=== PATIENT | female | born 1960 | race Caucasian/White ===

== ENCOUNTER 2018-08-24 09:13 | Inpatient (IN) | payer OTHER, SELFPAY ==
[2018-08-24 10:04] LABS: AST (SGOT) 3036 U/L (5-34); Albumin 3.8 g/dL (3.5-5.0); Alkaline Phosphatase 306 U/L (40-150); Anion Gap 16 mmol/L (10-20); BUN (Urea Nitrogen) 19 mg/dL (9.8-20.1); Bilirubin, Total 19.5 mg/dL (0.2-1.2); Calc. Creatinine Clearance 0 mL/min (70-130); Calcium 9.4 mg/dL (7.8-10.44); Carbon Dioxide 19 mmol/L (22-29); Chloride 101 mmol/L (98-107); Estimated GFR-MDRD 60; Globulin 3.6 g/dL (2.4-3.5); Glucose 116 mg/dL (70-105); Lipase 18 U/L (8-78); Potassium 3.6 mmol/L (3.5-5.1); Protein, Total 7.4 g/dL (6.0-8.3); Sodium 132 mmol/L (136-145)
[2018-08-24 10:16] LABS: ALT (SGPT) 4469 U/L (8-55)
[2018-08-24 10:18] LABS: Band 8 % (5-11); Eosinophils 1 % (0-10); Lymphocytes 19 % (21-51); MDiff Complete? YES; Macrocytosis SLIGHT = 6-15 cells (100X) (0-5/hpf); Mean Corpuscular HGB CONC 32.4 g/dL (32.0-36.0); Mean Corpuscular Hemoglobin 32.9 pg (27.0-31.0); Mean Platelet Volume 9.3 fL (7.4-10.4); Monocytes 9 % (0-10); Neutrophil 61 % (42-75); PLT Morphology Comment Appears Adequate; Platelet Count 267 thou/uL (130-400); Reactive Lymphocytes 2 % (0-10); Red Blood Cell (RBC) Count 5.17 mill/uL (4.20-5.40); White Blood Cell (WBC) Count 13.2 thou/uL (4.8-10.8)
[2018-08-24 10:42] LABS: CKMB 0.8 ng/mL (0-6.6); Troponin I Less than 0.010 ng/mL (< 0.028)
[2018-08-24 11:32] LABS: Bilirubin Large (Negative); Blood, Urine Trace (Negative); Leukocyte Trace (Negative); Protein, Urine (Dipstick) 100 mg/dL (Neg-Trace); pH, Urine 6.5 (5.0-9.0)
[2018-08-24 11:33] LABS: Clarity Hazy (Clear)
[2018-08-24 11:36] LABS: Nitrite Negative (Negative); Specific Gravity, Urine 1.028 (1.002-1.036)
[2018-08-24 11:37] LABS: Glucose, Urine (Dipstick) Negative (Negative)
[2018-08-24 11:55] LABS: RBC/HPF 0-3 HPF (0-3)
[2018-08-24 11:56] LABS: Bacteria/HPF None Seen HPF (None Seen); Hyaline Casts/LPF NONE SEEN LPF (0-3 Hyaline); Squamous Epithelial 0-3 HPF (0-3); Transitional Epithelial 0-3 HPF (0-3); WBC/HPF 0-3 HPF (0-3)
[2018-08-24 11:57] LABS: Crystals/HPF None Seen HPF (Negative); Yeast-All Forms 2+ HPF (None Seen)
--- NOTE | 2018-08-24 11:58 | ULT ---
RIGHT UPPER QUADRANT ULTRASOUND: HISTORY: Jaundice, alcohol abuse. FINDINGS: The liver demonstrates coarse echogenicity without focal mass or intrahepatic ductal dilatation. The common duct measures 6 mm in diameter. The gallbladder is not visualized. The patient states that has not been physically removed. No right-sided hydronephrosis is noted. No free fluid is seen in t he Morison's pouch. The visualized portions of the pancreas are unremarkable. IMPRESSION: 1. Nonvisualization of the gallbladder. 2. Findings suggestive of hepatocellular disease. POS: [facility]
--- NOTE | 2018-08-24 12:28 | CT ---
CT ABDOMEN AND PELVIS WITH CONTRAST: Date: 08/24/18 COMPARISON: None. HISTORY: Tiredness and jaundice. History of liver problems. Patient drinks 6-10 days beers every day. TECHNIQUE: Multiple contiguous axial images were obtained in a CT of the abdomen and pelvis with contrast. Coron al reformats were performed. FINDINGS: The gallbladder is contracted. The liver, kidneys, adrenal glands, spleen, and pancreas are unremarka ble. No free air, free fluid, or stranding changes are seen in the abdomen or pelvis. The large and small bowel are unremarkable. The appendix is unremarkable. No abdominal or pelvic lymp hadenopathy seen. Atherosclerotic calcifications are seen in the aorta. Degenerative changes are seen in the spine. The visualized inferior thorax and abdominal wall soft ti ssues are unremarkable. IMPRESSION: No evidence of acute intra-abdominal/pelvic abnormality. POS: [facility]
[2018-08-24 13:05] LABS: INR-International Normal Ratio 1.3; PTT 34.7 SEC (22.9-36.1); Prothrombin Time 16.5 SEC (12.0-14.7)
[2018-08-24] MEDS ORDERED: prednisoLONE Sod Phosphate 10 MG ODT TAB PO SCH (13:15)
[2018-08-24] MEDS ORDERED: ISOVUE-370 76%-LOCM 1 ML ONE (13:17)
[2018-08-24] MEDS ORDERED: prednisoLONE 15 MG/5 ML UDCUP ONE (14:03)
[2018-08-24] MEDS ORDERED: Sodium Chloride 0.65% Nasal 44 ML BOT EA NARE PRN (14:28)
[2018-08-24] MEDS ORDERED: Ondansetron PF 4 MG/2 ML Vial IVP PRN (14:28)
[2018-08-24] MEDS ORDERED: Calcium Carbonate 500 MG ChewTAB PO PRN (14:28)
[2018-08-24] MEDS ORDERED: cloNIDine 0.1 MG TAB PO PRN (14:28)
[2018-08-24] MEDS ORDERED: Ondansetron ODT 4 MG TAB PO PRN (14:28)
[2018-08-24] MEDS ORDERED: Multivit, Adult Inj 10 ML VIAL IV SCH (14:28)
[2018-08-24] MEDS ORDERED: Eucerin (Mineral Oil/Petrolatum,White) 30 gm Jar TOP PRN (14:28)
[2018-08-24] MEDS ORDERED: hydrALAZINE 20 MG/ML VIAL SLOW IVP PRN (14:28)
[2018-08-24] MEDS ORDERED: Artificial Tears 18 DROP/0.9 ML EA EYE PRN (14:28)
[2018-08-24] MEDS ORDERED: Multivitamins, Adult 10 ML in Sodium Chloride 0.9% 500 ML IV SCH (14:45)
--- NOTE | 2018-08-24 14:57 | HP ---
PRIMARY CARE PHYSICIAN: City call admission. REASON FOR ADMISSION: Acute hepatitis. HISTORY OF PRESENT ILLNESS: This is a 58-year-old female, who has no medical history, who presented to emergency room for evaluation of generalized weakness. 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 She went to work today, and her colleague worker noted that she is more yellowish and that is why she was instructed to go to emergency room for evaluation. The patient is not feeling good for about 1 week. She is having generalized weakness. She also noticed that her skin was becoming yellow and her urine was also becoming dark and yellow. She denies any upper abdominal pain. She denies any nausea, vomiting, diarrhea, melena, or hematochezia. She denies any chest pain. She denies any UTI symptoms. She denies any unusual food indigestion. She denies any excessive Tylenol or any herbal medication. The patient reports that when she was in 30s, at that time, she used to do IV drugs, but currently she is only drinking alcohol. She drinks almost 6 to 10 beers, 12 ounces everyday basis for last 20 to 30 years, and she is also smoking. She drank a little bit more during gi. She denies any abdominal distention. She denies any confusion. She denies any fever or chills, but she is noticing that she gets bruise very easily. She did not have any major bleeding from any site in her body. The patient denies any lower extremity edema, orthopnea, or PND. She denies any weight loss. She denies any upper abdominal pain. Today, in the emergency room, the patient had a routine blood test, and she was found with severely abnormal AST and ALT as well as she has leukocytosis and jaundice. CT of abdomen and pelvis did not show any acute process. Ultrasound showed hepatocellular pattern. The patient is being admitted to medical floor for acute hepatitis. REVIEW OF SYSTEMS: Please see my HPI for pertinent positive and negative. All other review of systems reviewed and negative expect as mentioned in the HPI. REVIEW OF SYSTEMS: The following complete review of systems was negative, unless otherwise mentioned in the HPI or below: Constitutional: Weight loss or gain, ability to conduct usual activities. Skin: Rash, itching. Eyes: Double vision, pain. ENT/Mouth: Nose bleeding, neck stiffness, pain, tenderness. Cardiovascular: Palpitations, dyspnea on exertion, orthopnea. Respiratory: Shortness of breath, wheezing, cough, hemoptysis,fever or night sweats. Gastrointestinal: Poor appetite, abdominal pain, heartburn, nausea, vomiting, constipation, or diarrhea. Genitourinary: Urgency, frequency, dysuria, nocturia. Musculoskeletal: Pain, swelling. Neurologic/Psychiatric: Anxiety, depression. Allergy/Immunologic: Skin rash, bleeding tendency. PAST MEDICAL HISTORY The patient reports that she had one time herpes zoster infection. She was having polysubstance abuse in her young age. PAST SURGICAL HISTORY: The patient denies any previous surgical history. PAST PSYCHIATRIC HISTORY: Reviewed and negative. SOCIAL HISTORY: Currently, the patient drinks 5 to 10 beers on daily basis for last 30 years. She also smokes about 1 or 2 packs everyday basis. She used to do IV drugs when she was young, but currently, the patient denies any drug abuse. FAMILY HISTORY: No family history of coronary artery disease, stroke, or cancer. ALLERGIES: NO KNOWN DRUG ALLERGIES. CURRENT HOME MEDICATIONS: The patient is not taking any prescribed or non-prescribed medication. EMERGENCY ROOM COURSE: The patient was given prednisolone 40 mg p.o. and IV fluid 1 L given. PHYSICAL EXAMINATION: VITAL SIGNS: On arrival, blood pressure 145/73, pulse 138, respiratory rate 18, temperature 97.3, and saturation 96% on room air. Weight 70.3 kg. GENERAL: The patient is currently alert, awake. No obvious acute distress. Tachycardic. HEENT: Head, normocephalic and atraumatic. Eyes; deep icterus noted. Extraocular muscle intact. No nystagmus. ENT, oropharynx within normal limits. Moist mucous membrane. No oral lesion. No pharyngeal erythema. No exudate. NECK: Supple. No JVD. No thyromegaly. No carotid bruits. LUNGS: Clear to auscultation without any rhonchi or rales. CARDIAC: S1 and S2, regular. Tachycardia. No murmur. No gallop. No rub. ABDOMEN: Soft. The patient does not have any right upper quadrant tenderness. No Al sign. No peritoneal sign. No ascites. No suprapubic tenderness. No organomegaly. No mass. BACK: Unremarkable. No CVA tenderness. EXTREMITIES: Upper extremities; passive movement of all joints is normal. Lower extremities; no edema. Good distal pulsation. SKIN: Jaundiced skin and bruise noted. PSYCHIATRIC: Normal affect. NEUROLOGIC: Nonfocal examination. No asterixis. Alert and oriented x3. Cranial nerves 2 through 12 intact. Motor and sensation within normal limits. No focal neurological deficit noted. SIGNIFICANT LABORATORY DATA: EKG showing sinus tachycardia. CT of abdomen and pelvis with contrast showing no evidence of acute intraabdominal process. Ultrasound of gallbladder showing finding suggestive of hepatocellular pattern. No CBD stone. CBC: WBC 13.2, hemoglobin 17.0, MCV 101.0, and platelets 267 with bandemia. BMP: Sodium 132, potassium 3.6, chloride 101, carbon dioxide 19, BUN 19, creatinine 0.95, glucose 116, and calcium 9.4. LFT: Total bilirubin 19.5, AST 3036, ALT 4469, alkaline phosphatase 306, albumin 3.8. Lipase 18. CK-MB 0.8. Troponin-I less than 0.010. Magnesium 1.7. Urinalysis: Bilirubin, large; leukocyte esterase, trace; yeast, 2+. ASSESSMENT AND PLAN: Impression: 1. Acute alcoholic hepatitis. At this point, we will check PT, INR, and ammonia level. Campaign Consultant team will be consulted. We will start prednisolone 40 mg p.o. daily. Counseling is given to avoid alcohol or tobacco products. We will check Tylenol level, and we will also check viral hepatitis profile and human immunodeficiency virus status. The patient does not have any arthralgia or any other upper or lower respiratory symptoms to support any other viral infection or autoimmune process at this point. Further investigation will defer to correspondence representative. We will closely monitor while in hospital and monitor LFT. The patient will be given gentle IV fluid with dextrose NS at 125 mL per hour. The patient will be given multivitamin as well. We will also consider folic acid, vitamin B12, and thiamine therapy as well. We will watch for any alcohol withdrawal syndrome. 2. Systemic inflammatory response syndrome criteria, secondary to acute alcoholic hepatitis. The patient has leukocytosis, bandemia, and tachycardia, all related with hepatitis process. The patient does not have any infectious etiology at this point. This systemic inflammatory response syndrome criteria is related with non- infectious etiology from hepatic inflammation. 3. Macrocytic anemia. As mentioned above, the patient has alcohol abuse that contributes macrocytic anemia. We will continue with multivitamin IV as well as folic acid and vitamin B12 and thiamine therapy. 4. Mild metabolic acidosis and mild hyponatremia. We will repeat BMP tomorrow. 5. Tobacco abuse disorder. We will provide nicotine patch while in hospital if needed. Smoking cessation counseling given. 6. Alcohol abuse counseling given to avoid alcohol product. We will continue with folic acid, vitamin B12, and thiamine therapy. 7. History of polysubstance abuse. We will check hepatitis profile as well as human immunodeficiency virus status. 8. Deep venous thrombosis prophylaxis. SCD boots only. We will avoid heparin products because of suspecting coagulopathy from liver disease. 9. Gastrointestinal prophylaxis, Pepcid 20 mg p.o. b.i.d. 10. Code status, the patient is full code. The patient does not have any surrogate decision maker. 11. Disposition plan: Based on clinical course. Job ID: [id number] [facility]
[2018-08-24] MEDS: Dextrose 5 % And 0.9 % NaCl 1,000 ML IV SCH ×2 (15:19→22:16)
[2018-08-24 15:22] VITALS: BMI 24.3
[2018-08-24 15:40] LABS: Acetaminophen Less than 6.0 mcg/mL (10.0-30.0); Alcohol Less than 10 mg/dL (Less than 10); Salicylate Less than 8.0 mg/dL (15.0-30.0)
[2018-08-24 16:01] LABS: HBCM Index 0.07 S/CO (0-0.79); HBSAg Index 0.26 S/CO (0-0.99); HIV (1/2) Antibody/Antigen Non-Reactive (NonReactive); HIV 1/2 INDEX 0.13 S/CO (<1.00); Hep A IgM AB Non-Reactive (NonReactive); Hep A IgM S/CO 0.13 S/CO (0-0.79); Hep B Surf Ag Non-Reactive S/CO (NonReactive); Hep C IgG Ab Non-Reactive (NonReactive); Hep C Index 0.12 S/CO (0-0.79); Hepatitis B Core IgM Abs Non-Reactive (NonReactive)
[2018-08-24 16:03] LABS: Amphetamine Not Detected (NotDetected); Barbiturates Screen Not Detected (NotDetected); Benzodiazepine Screen Not Detected (NotDetected); Cocaine Metabolite Screen Not Detected (NotDetected); Medtox Control Line Valid? VALID (VALID); Medtox Reader # READER 1; Methadone Not Detected (NotDetected); Methamphetamine Not Detected (NotDetected); Opiate Screen Not Detected (NotDetected); Oxycodone Screen Not Detected (NotDetected); Phencyclidine (PCP) Not Detected (NotDetected); THC/Cannabinoid Screen Not Detected (NotDetected); Tricyclic Screen Not Detected (NotDetected)
[2018-08-24] MEDS: Famotidine 20 MG TAB PO SCH (20:11)
--- NOTE | 2018-08-25 00:03 | CON ---
DATE OF CONSULTATION: HISTORY OF PRESENT ILLNESS: The patient is a 58-year-old female, who is in a normal state of health until 1 week prior to admission when she began to notice yellowing eyes and darkening urine. She had no abdominal pain. She has had no nausea or vomiting. She has had no change in her bowel movements other than lightening of her stools. She has not had any prior liver disease. PAST MEDICAL HISTORY: Essentially negative. MEDICATIONS: No prescription medicines or [id number] medicines. On further discussion on [id number], she reports that she takes vitamin E, vitamin D, multivitamin, and milk thistle. ALLERGIES: INCLUDE SULFA. PAST SURGICAL HISTORY: Negative. SOCIAL HISTORY: She drinks 6 to 12 beers per day for the last 30 years. She smokes 2 packs per day for the last 30 years. FAMILY HISTORY: Negative for GI or liver disease. REVIEW OF SYSTEMS: CONSTITUTIONAL: No fever or chills. No weight loss. EYES: No blurred vision or double vision. ENT: No sore throat or earache. CARDIOVASCULAR: No chest pain or palpitations. PULMONARY: No shortness of breath, cough, or wheezing. GI: See above. : No hematuria or dysuria. MUSCULOSKELETAL: No joint pain or muscle weakness. SKIN: No rashes. NEUROLOGIC: No numbness or seizure activity. PHYSICAL EXAMINATION: GENERAL: Shows a deeply icteric white female, in no acute distress. VITAL SIGNS: Temperature 97, pulse 79, respiratory rate 16, and blood pressure 123/81. HEENT: Unremarkable. NECK: Supple. CHEST: Clear. CARDIOVASCULAR: Regular rate and rhythm. ABDOMEN: Soft, nontender, without organomegaly or masses. Bowel sounds are present, normoactive. No hepatosplenomegaly is appreciable. EXTREMITIES: Normal. No edema or other abnormalities are noted. SKIN: She does have spider angiomata of the chest and face. NEUROLOGIC: Nonfocal. LABORATORY DATA: Shows a white blood cell count of 15.2, hemoglobin is 17.0, hematocrit of 52.4, MCV of 101. PT is 16.5 and an INR of 1.3. Chemistries show sodium of 132, CO2 of 19, glucose 116, total bilirubin 19.5, AST of 3036, ALT of 4469, alkaline phosphatase of 306. Urinalysis shows 40 ketones, 100 protein, trace blood, large bilirubin, trace leukocyte esterase. Toxicology shows salicylates less than 8, acetaminophen less than 6, and plasma alcohol less than 10. ASSESSMENT: 1. A 58-year-old alcoholic female with jaundice and overall malaise. Her transaminases are atypical for alcoholic hepatitis and more typical of viral hepatitis or possibly some other etiologic insult to the liver such as acetaminophen overdose or ischemia; both of which are very unlikely. 2. Alcoholism. 3. Elevated hemoglobin-smoking plus or minus dehydration. RECOMMENDATIONS: 1. Hydration. 2. Did not place on IV steroids quite yet. 3. Hepatitis panel. 4. Serial LFTs. Job ID: [id number]
[2018-08-25] MEDS: Dextrose 5 % And 0.9 % NaCl 1,000 ML IV SCH ×4 (03:00→20:19)
[2018-08-25 05:07] LABS: #Basophils 0.1 thou/uL (0.0-0.2); #Lymphocytes 1.9 thou/uL (1.20-3.40); #Monocytes 1.4 thou/uL (0.11-0.59); #Neutrophils 6.2 thou/uL (1.40-6.50); %Basophils 0.9 % (0.0-1.0); %Eosinophils 0.3 % (0.0-10.0); %Lymphocytes 19.7 % (21.0-51.0); %Monocytes 14.7 % (0.0-10.0); %Neutrophils 64.5 % (42.0-75.0); Hemoglobin 14.1 g/dL (12.0-16.0); Mean Corpuscular HGB CONC 33.1 g/dL (32.0-36.0); Mean Platelet Volume 9.2 fL (7.4-10.4); Platelet Count 237 thou/uL (130-400); RBC Distribution Width 13.1 % (11.5-14.5); Red Blood Cell (RBC) Count 4.14 mill/uL (4.20-5.40); White Blood Cell (WBC) Count 9.7 thou/uL (4.8-10.8)
[2018-08-25 05:17] LABS: ALT (SGPT) 2892 U/L (8-55); AST (SGOT) 1356 U/L (5-34); Albumin 2.9 g/dL (3.5-5.0); Alkaline Phosphatase 205 U/L (40-150); Anion Gap 7 mmol/L (10-20); BUN (Urea Nitrogen) 12 mg/dL (9.8-20.1); Bilirubin, Total 14.5 mg/dL (0.2-1.2); Calc. Creatinine Clearance 92 mL/min (70-130); Calcium 8.6 mg/dL (7.8-10.44); Carbon Dioxide 25 mmol/L (22-29); Chloride 109 mmol/L (98-107); Estimated GFR-MDRD 82; Globulin 2.8 g/dL (2.4-3.5); Glucose 149 mg/dL (70-105); Potassium 3.9 mmol/L (3.5-5.1); Protein, Total 5.7 g/dL (6.0-8.3); Sodium 137 mmol/L (136-145)
[2018-08-25 05:21] LABS: ALT (SGPT) 2965 U/L (8-55); AST (SGOT) 1376 U/L (5-34); Alkaline Phosphatase 223 U/L (40-150); Bilirubin, Total 14.6 mg/dL (0.2-1.2); Gamma GT (GGT) 144 U/L (9-36); Protein, Total 5.7 g/dL (6.0-8.3)
[2018-08-25 05:56] LABS: Bilirubin, Direct Greater than 10.0 mg/dL (0.1-0.3)
[2018-08-25 07:11] LABS: Iron 193 ug/dL (50-170); Iron Binding Capacity, Total 188 mcg/dL (265-497)
[2018-08-25] MEDS: Famotidine 20 MG TAB PO SCH ×2 (07:58→20:06)
--- NOTE | 2018-08-25 08:51 | PDOC.PN ---
- Subjective Encounter Start Date: 08/25/18 Encounter Start Time: 07:00 -: old records requested/rev Patient seen and examined. No new complaints. No overnight events she does not have any abdominal pain, she does report some joint pain - Objective Resuscitation Status - Order Detail: 08/24/18 12:50 Resuscitation Status Routine Resuscitation Status: FULL: Full Resuscitation MAR Reviewed: Yes Vital Signs & Weight: Vital Signs (12 hours) Temp Pulse Resp BP Pulse Ox 08/25/18 07:15 97.6 F 84 16 102/67 94 L 08/25/18 04:00 98.0 F 64 16 99/64 94 L 08/25/18 00:49 98.0 F 81 18 110/69 92 L Weight Weight 154 lb 15.759 oz I&O: 08/24/18 08/25/18 08/26/18 06:59 06:59 06:59 Intake Total 1850 Balance 1850 Result Diagrams: 08/25/18 04:40 08/25/18 04:40 Phys Exam - Physical Examination Constitutional: NAD HEENT: PERRLA, moist MMs icterus+ Neck: no JVD, supple Respiratory: no wheezing, no rales, no rhonchi Cardiovascular: RRR, no significant murmur, no rub Gastrointestinal: soft, non-tender, no distention, positive bowel sounds Musculoskeletal: no edema, pulses present Neurological: non-focal, normal sensation, moves all 4 limbs Lymphatic: no nodes Psychiatric: normal affect, A&O x 3 Skin: no rash, normal turgor Dx/Plan (1) Acute alcoholic hepatitis Code(s): K70.10 - ALCOHOLIC HEPATITIS WITHOUT ASCITES Status: Acute (2) Hypoalbuminemia Code(s): E88.09 - OTH DISORDERS OF PLASMA-PROTEIN METABOLISM, NEC Status: Acute Comment: due to alcoholic liver disease (3) Jaundice, hepatocellular Code(s): K76.89 - OTHER SPECIFIED DISEASES OF LIVER Status: Acute (4) Alcohol abuse Code(s): F10.10 - ALCOHOL ABUSE, UNCOMPLICATED Status: Chronic (5) Macrocytic anemia Code(s): D53.9 - NUTRITIONAL ANEMIA, UNSPECIFIED Status: Chronic (6) Tobacco abuse Code(s): Z72.0 - TOBACCO USE Status: Chronic (7) Hemochromatosis Code(s): E83.119 - HEMOCHROMATOSIS, UNSPECIFIED Status: Suspected - Plan cont current plan of care * pt has high ferritin, but may be related with SIRS from hepatitis, then checked iron and transferrin level, all test are high, that gives suspicious about hemochromatosis * will ask GI team to order any genetic test and any further test to rule out hemochromatosis * medication reviewed as below * symptomatic treatment * continue current treatment * GI recommendation noted. * will repeat labs tomorrow Review of Systems - Review of Systems ENT: negative: Ear Pain, Ear Discharge, Nose Pain, Nose Discharge, Nose Congestion, Mouth Pain, Mouth Swelling, Throat Pain, Throat Swelling, Other Respiratory: negative: Cough, Dry, Shortness of Breath, Hemoptysis, SOB with Excertion, Pleuritic Pain, Sputum, Wheezing Cardiovascular: negative: chest pain, palpitations, orthopnea, paroxysmal nocturnal dyspnea, edema, light headedness, other Gastrointestinal: negative: Nausea, Vomiting, Abdominal Pain, Diarrhea, Constipation, Melena, Hematochezia, Other Genitourinary: negative: Dysuria, Frequency, Incontinence, Hematuria, Retention , Other Musculoskeletal: negative: Neck Pain, Shoulder Pain, Arm Pain, Back Pain, Hand Pain, Leg Pain, Foot Pain, Other Skin: negative: Rash, Lesions, Kumar, Bruising, Other - Medications/Allergies Allergies/Adverse Reactions: Allergies Allergy/AdvReac Type Severity Reaction Status Date / Time Penicillins Allergy Verified 08/24/18 15:29 Sulfa (Sulfonamide Allergy Verified 08/24/18 15:30 Antibiotics) Medications: Current Medications Artificial Tears (Tears Naturale) 2 drop EA EYE PRN PRN PRN Reason: Dry Eyes Calcium Carbonate (Tums) 1,000 mg PO Q4H PRN PRN Reason: Heartburn or Indigestion Clonidine (Catapres) 0.1 mg PO Q4H PRN PRN Reason: SBP Greater Than 170 Famotidine (Pepcid) 20 mg PO BID [facility] Last Admin: 08/25/18 07:58 Dose: 20 mg Hydralazine HCl (Apresoline) 10 mg SLOW IVP Q4H PRN PRN Reason: SBP > 180 and HR < 70 Dextrose/Sodium Chloride (D5 0.9% Ns) 1,000 mls @ 125 mls/hr IV .Q8H [facility] Last Admin: 08/25/18 03:00 Dose: 1,000 mls Lactulose (Lactulose) 20 gm PO DAILY [facility] Last Admin: 08/25/18 07:59 Dose: 20 gm Mineral Oil/White Petrolatum (Eucerin Cream) 0 gm TOP BIDPRN PRN PRN Reason: Dry Skin Ondansetron HCl (Zofran Odt) 4 mg PO Q6H PRN PRN Reason: Nausea/Vomiting Ondansetron HCl (Zofran) 4 mg IVP Q6H PRN PRN Reason: Nausea/Vomiting Sodium Chloride ([place] Nasal [place] 0.65%) 0 ml EA NARE QIDPRN PRN PRN Reason: Nasal Congestion
[2018-08-25] MEDS ORDERED: prednisoLONE 15 MG/5 ML UDCUP PO SCH (09:00)
--- NOTE | 2018-08-25 14:11 | PRG ---
DATE OF SERVICE: 08/25/2018 SUBJECTIVE: The patient is feeling well today. Eating well. Normal bowel sounds. OBJECTIVE: VITAL SIGNS: Temperature 98.1, pulse 72, respiratory rate 18, and blood pressure 95/62. CHEST: Clear. CARDIOVASCULAR: Regular rate and rhythm. ABDOMEN: Benign. EXTREMITIES: Normal. LABORATORY DATA: Laboratory shows a white blood cell count of 9.7, hemoglobin 14.1, and hematocrit of 42.5. Chemistries significant for a ferritin of 4800, iron is 193, TIBC of 188, and a percent saturation of 103. Total bilirubin 14.6, GGT of 144, AST of 1376, ALT of 2965, and alkaline phosphatase 223. Hepatitis and HIV were all negative. ASSESSMENT: Acute hepatitis - this is possibly secondary to the combination of alcohol and iron overload. The patients with alcoholic hepatitis can also have abnormal iron studies and the patients with alcohol abuse are also more susceptible to liver disease from hemochromatosis. RECOMMENDATIONS: 1. Liver biopsy. 2. Hemochromatosis phenotyping. 3. Alpha-fetoprotein. Job ID: [id number]
--- NOTE | 2018-08-25 15:20 | ULT ---
ULTRASOUND GUIDED LIVER BIOPSY: Date: 08/25/18 INDICATION: Significant liver disease with possible hemochromatosis. TECHNIQUE: Informed consent was obtained. Preprocedure ultrasound was performed for guidance purposes. Site over lying the left hepatic lobe was marked. Site was prepped and draped in the usual sterile fashion. Marc eout was performed. The overlying subcutaneous tissues and liver capsule were anesthetized utilizing buffered 1% lidocaine. A small incision was made. A 17 gauge trocar needle was guided down into the l eft hepatic lobe. One core sample utilizing an 18 gauge core biopsy device was obtained. This was a 2 .5 cm sample. The patient tolerated the biopsy without difficulty. Postprocedure images demonstrate n o significant intraparenchymal hematoma. Pressure was held at the biopsy site until hemostasis obtain ed. The patient tolerated the biopsy without difficulty. IMPRESSION: Successful ultrasound guided nonfocal core liver biopsy of left hepatic lobe. POS: [facility]
[2018-08-25] MEDS ORDERED: diphenhydrAMINE 50 MG/ML VIAL IVP SCH (22:15)
[2018-08-26] MEDS: Dextrose 5 % And 0.9 % NaCl 1,000 ML IV SCH (06:34)
[2018-08-26] MEDS: Famotidine 20 MG TAB PO SCH (08:06)
[2018-08-26 08:30] LABS: ALT (SGPT) 2548 U/L (8-55); AST (SGOT) 1449 U/L (5-34); Albumin 2.7 g/dL (3.5-5.0); Alkaline Phosphatase 198 U/L (40-150); Anion Gap 9 mmol/L (10-20); BUN (Urea Nitrogen) 6 mg/dL (9.8-20.1); Bilirubin, Total 14.6 mg/dL (0.2-1.2); Calc. Creatinine Clearance 103 mL/min (70-130); Calcium 7.9 mg/dL (7.8-10.44); Carbon Dioxide 21 mmol/L (22-29); Chloride 113 mmol/L (98-107); Estimated GFR-MDRD Greater than 90; Globulin 2.7 g/dL (2.4-3.5); Glucose 103 mg/dL (70-105); Potassium 3.7 mmol/L (3.5-5.1); Protein, Total 5.4 g/dL (6.0-8.3); Sodium 139 mmol/L (136-145)
--- NOTE | 2018-08-26 09:34 | PDOC.PN ---
- Subjective Encounter Start Date: 08/26/18 Encounter Start Time: 08:50 Patient seen and examined. No new complaints. No overnight events - Objective Resuscitation Status - Order Detail: 08/24/18 12:50 Resuscitation Status Routine Resuscitation Status: FULL: Full Resuscitation MAR Reviewed: Yes Vital Signs & Weight: Vital Signs (12 hours) Temp Pulse Resp BP BP Pulse Ox 08/26/18 08:20 101/63 08/26/18 08:08 92 L 08/26/18 07:41 99.5 F 76 20 101/63 91 L 08/25/18 23:00 20 Weight Weight 154 lb 15.759 oz I&O: 08/25/18 08/26/18 08/27/18 06:59 06:59 06:59 Intake Total 1850 3200 Balance 1850 3200 Result Diagrams: 08/25/18 04:40 08/26/18 07:56 Phys Exam - Physical Examination Constitutional: NAD HEENT: PERRLA, moist MMs icterus+ Neck: no JVD, supple Respiratory: no wheezing, no rales, no rhonchi Cardiovascular: RRR, no significant murmur, no rub Gastrointestinal: soft, non-tender, no distention, positive bowel sounds Musculoskeletal: no edema, pulses present Neurological: non-focal, normal sensation, moves all 4 limbs Lymphatic: no nodes Psychiatric: normal affect, A&O x 3 Skin: no rash, normal turgor Dx/Plan (1) Acute alcoholic hepatitis Code(s): K70.10 - ALCOHOLIC HEPATITIS WITHOUT ASCITES Status: Acute (2) Hypoalbuminemia Code(s): E88.09 - OTH DISORDERS OF PLASMA-PROTEIN METABOLISM, NEC Status: Acute Comment: due to alcoholic liver disease (3) Jaundice, hepatocellular Code(s): K76.89 - OTHER SPECIFIED DISEASES OF LIVER Status: Acute (4) Alcohol abuse Code(s): F10.10 - ALCOHOL ABUSE, UNCOMPLICATED Status: Chronic (5) Macrocytic anemia Code(s): D53.9 - NUTRITIONAL ANEMIA, UNSPECIFIED Status: Chronic (6) Tobacco abuse Code(s): Z72.0 - TOBACCO USE Status: Chronic (7) Hemochromatosis Code(s): E83.119 - HEMOCHROMATOSIS, UNSPECIFIED Status: Suspected - Plan cont current plan of care * medication reviewed as below * symptomatic treatment * reduce IVF * LFT slowly improving * follow up on liver biopsy and hereditary hemochromatosis test result. Review of Systems - Review of Systems ENT: negative: Ear Pain, Ear Discharge, Nose Pain, Nose Discharge, Nose Congestion, Mouth Pain, Mouth Swelling, Throat Pain, Throat Swelling, Other Respiratory: negative: Cough, Dry, Shortness of Breath, Hemoptysis, SOB with Excertion, Pleuritic Pain, Sputum, Wheezing Cardiovascular: negative: chest pain, palpitations, orthopnea, paroxysmal nocturnal dyspnea, edema, light headedness, other Gastrointestinal: negative: Nausea, Vomiting, Abdominal Pain, Diarrhea, Constipation, Melena, Hematochezia, Other Genitourinary: negative: Dysuria, Frequency, Incontinence, Hematuria, Retention , Other Musculoskeletal: negative: Neck Pain, Shoulder Pain, Arm Pain, Back Pain, Hand Pain, Leg Pain, Foot Pain, Other Skin: negative: Rash, Lesions, Kumar, Bruising, Other - Medications/Allergies Allergies/Adverse Reactions: Allergies Allergy/AdvReac Type Severity Reaction Status Date / Time Penicillins Allergy Verified 08/24/18 15:29 Sulfa (Sulfonamide Allergy Verified 08/24/18 15:30 Antibiotics) Medications: Current Medications Artificial Tears (Tears Naturale) 2 drop EA EYE PRN PRN PRN Reason: Dry Eyes Calcium Carbonate (Tums) 1,000 mg PO Q4H PRN PRN Reason: Heartburn or Indigestion Clonidine (Catapres) 0.1 mg PO Q4H PRN PRN Reason: SBP Greater Than 170 Famotidine (Pepcid) 20 mg PO BID [facility] Last Admin: 08/26/18 08:06 Dose: 20 mg Hydralazine HCl (Apresoline) 10 mg SLOW IVP Q4H PRN PRN Reason: SBP > 180 and HR < 70 Dextrose/Sodium Chloride (D5 0.9% Ns) 1,000 mls @ 125 mls/hr IV .Q8H [facility] Last Admin: 08/26/18 06:34 Dose: 1,000 mls Lactulose (Lactulose) 20 gm PO DAILY [facility] Last Admin: 08/26/18 08:06 Dose: 20 gm Mineral Oil/White Petrolatum (Eucerin Cream) 0 gm TOP BIDPRN PRN PRN Reason: Dry Skin Ondansetron HCl (Zofran Odt) 4 mg PO Q6H PRN PRN Reason: Nausea/Vomiting Ondansetron HCl (Zofran) 4 mg IVP Q6H PRN PRN Reason: Nausea/Vomiting Sodium Chloride ([place] Nasal [place] 0.65%) 0 ml EA NARE QIDPRN PRN PRN Reason: Nasal Congestion
--- NOTE | 2018-08-26 11:01 | DIS ---
DATE OF ADMISSION: 08/24/2018 DATE OF DISCHARGE: 08/26/2018 PRIMARY CARE PHYSICIAN: [facility] call admission. DISCHARGE DISPOSITION: Home. PRIMARY DISCHARGE DIAGNOSIS: Acute hepatitis. SECONDARY DISCHARGE DIAGNOSES: 1. Tobacco abuse disorder. 2. Macrocytic anemia. 3. Alcohol abuse. PRIMARY PROCEDURE/OPERATION: Liver biopsy. RADIOLOGICAL INVESTIGATION: Abdomen and pelvis CT scan unremarkable. Abdominal ultrasound, hepatocellular pattern. SIGNIFICANT LABS: WBC 9.7, hemoglobin 14.1, and platelet 237. INR 1.3. Sodium 139, potassium 3.7, BUN 6, creatinine 0.65. Bilirubin 14.6, AST 1449, ALT 2548, alkaline phosphatase 198, albumin 2.7. Alpha-fetoprotein level 6.3. Serum drug screen and urine drug screen negative. Hepatitis and HIV negative. DISCHARGE MEDICATIONS: 1. Prednisolone 40 mg p.o. daily. 2. Lactulose 20 g p.o. daily p.r.n. 3. Folic acid 1 mg p.o. daily. 4. Vitamin B12 1000 mcg p.o. daily. 5. Thiamine 100 mg p.o. daily. 6. Pepcid 20 mg p.o. b.i.d. CONTRAINDICATION: None. CODE STATUS: Full code. INPATIENT BOTTOM FINISHER: Dr. Moane was following while in hospital. TEST RESULTS PENDING ON DISCHARGE: Hemochromatosis DNA test and liver biopsy test result pending. DISCHARGE PLAN: Post hospital, the patient will have appointment with Dr. Monae on coming . At that time, the patient will have repeat LFT done and follow up on test results. HOSPITAL COURSE: A 58-year-old female who was admitted by me. Please see my HPI for further detail. The patient was having significantly abnormal LFT. She had abdominal ultrasound and abdominal pelvis CT scan which did not show any acute process. We suspected alcoholic hepatitis given her alcohol history. We checked a viral hepatitis panel and that was negative, HIV was negative. When we checked ferritin level, it was very high and transferrin level was also very high, so we suspected hereditary hemochromatosis, we did liver biopsy and hereditary hemochromatosis test result was sent. We also prescribed prednisolone upon discharge for 7 days and the patient will follow with GI in their clinic for a repeat followup. Even with these LFTs, the patient is doing excellent. She is ambulatory, tolerating p.o. well, and she does not have any significant clinical problem, but she needs to follow up with GI as an outpatient basis. I spoke with Dr. Monae and he cleared her for discharge as well. Please follow up on send-out test results including HANNAH, ceruloplasmin, CMV, Wen-Zhao virus, mitochondrial antibody, hemochromatosis, biopsy, and DNA test. The patient is seen and examined at bedside today. Please see my progress note from today for further details. Total time spent on discharge, 32 minutes. Job ID: [id number]
--- NOTE | 2018-08-26 11:36 | PRG ---
DATE OF SERVICE: 08/26/2018 SUBJECTIVE: The patient is feeling well. She has had no nausea or vomiting. She is having good bowel movements. Her liver biopsy was performed without incident yesterday. OBJECTIVE: VITAL SIGNS: Temperature is 99.5, pulse 76, and blood pressure 101/63. CHEST: Clear. CARDIOVASCULAR: Regular rate and rhythm. ABDOMEN: Soft and slightly tender in right upper quadrant without rebound or guarding. LABORATORY DATA: Laboratory shows a CO2 of 21, total bilirubin of 14.6, AST of 1449, ALT of 2548, alkaline phosphatase of 198, alpha-fetoprotein is 6.3, albumin of 2.7. ASSESSMENT: Acute hepatitis - I suspect this is a combination of alcoholic hepatitis and possible hemochromatosis. RECOMMENDATIONS: 1. Have the patient follow up in our office later in the week on either or Tuesday. 2. Begin prednisolone 40 mg daily. We will continue that as an outpatient and reassess after 1 week of therapy. 3. Alcohol abstinence. 4. Stable for discharge from GI standpoint. Job ID: [id number]
[2018-08-26 11:57] VITALS: BP 127/82; TEMP 97.9
[2018-08-27] MEDS ORDERED: prednisoLONE 15 MG/5 ML UDCUP PO SCH (08:00)
[2018-08-27 14:09] LABS: CMV IgG AB Greater than 10.00 U/mL (0.00-0.59)
[2018-08-27 16:37] LABS: ANA Symphony (Qualitative) Negative (Negative); EliA Vaculitis New Method **** NEW METHOD ****; Mitochondrial Ab 1.4 U/mL (<4 Negative); dsDNA IgG Antibody 1.2 IU/mL (<10 Negative)
== END 2018-08-26 12:32 | disposition home or self-care (01) | DRG 434 ==
LOC: ERS 09:13 → T4-A 12:33
PROVIDERS: ADMIT Internal Medicine; ATTEND Internal Medicine
PROC: 0FB23ZX Excision of Left Lobe Liver, Percutaneous Approach, Diagnostic (ICD-10-PCS; principal; 2018-08-24)
DX: K70.10 Alcoholic hepatitis without ascites (principal); E88.09 Other disorders of plasma-protein metabolism, not elsewhere classified; F10.20 Alcohol dependence, uncomplicated; D53.9 Nutritional anemia, unspecified; Z72.0 Tobacco use; E83.119 Hemochromatosis, unspecified
CPT/HCPCS: 36415; 47000; 74177; 76705; 76942; 80053; 80074; 80306; 80307; 81003; 81015; 81256; 82105; 82140; 82390; 82553; 82728; 82977; 83516; 83540; 83550; 83690; 83735; 84484; 85025; 85610; 85730; 86038; 86225; 86644; 86645; 87389; 87798; 88307; 88313; 88321; 96360; J1200; J7050

== ENCOUNTER 2020-05-21 11:44 | Inpatient (IN) | payer OTHER ==
[2020-05-21 12:26] LABS: INR-International Normal Ratio 1.2; PTT 35.5 sec (22.9-36.1); Prothrombin Time 15.2 sec (12.0-14.7)
[2020-05-21 12:47] LABS: Hemoglobin 16.1 g/dL (12.0-16.0); Mean Corpuscular Hemoglobin 32.1 pg (27.0-31.0); Mean Platelet Volume 10.2 fL (7.4-10.4); Platelet Count 261 thou/uL (130-400); RBC Distribution Width 13.4 % (11.5-14.5); Red Blood Cell (RBC) Count 5.03 mill/uL (4.20-5.40)
[2020-05-21 12:48] LABS: ALT (SGPT) 1848 U/L (8-55); AST (SGOT) 1344 U/L (5-34); Albumin 3.8 g/dL (3.4-4.8); Alkaline Phosphatase 329 U/L (40-110); Anion Gap 11 mmol/L (10-20); BUN (Urea Nitrogen) 15 mg/dL (9.8-20.1); Bilirubin, Total 10.3 mg/dL (0.2-1.2); Calc. Creatinine Clearance 0 mL/min (70-130); Calcium 9.1 mg/dL (7.8-10.44); Carbon Dioxide 22 mmol/L (23-31); Chloride 105 mmol/L (98-107); Estimated GFR-MDRD 70; Globulin 4.5 g/dL (2.4-3.5); Glucose 129 mg/dL (80-115); Lipase 17 U/L (8-78); Protein, Total 8.3 g/dL (6.0-8.3); Sodium 134 mmol/L (136-145)
[2020-05-21 12:51] LABS: #Basophils 0.2 thou/uL (0.0-0.2); #Eosinphils 0.2 thou/uL (0.0-0.7); #Lymphocytes 4.9 thou/uL (1.20-3.40); #Monocytes 1.6 thou/uL (0.11-0.59); #Neutrophils 8.6 thou/uL (1.40-6.50); %Eosinophils 1.5 % (0.0-10.0); %Lymphocytes 31.7 % (21.0-51.0); %Monocytes 10.2 % (0.0-10.0); %Neutrophils 55.5 % (42.0-75.0); Band 7 % (5-11); Eosinophils 1 % (0-10); Lymphocytes 20 % (21-51); MDiff Complete? YES; Monocytes 7 % (0-10); Neutrophil 65 % (42-75); Platelet Morphology Comment Appears Adequate; Polychromasia SLIGHT = 2-3 cells (100X) (0-2/hpf); Target Cells SLIGHT = 2-5 cells (100X) (0-1/hpf)
[2020-05-21] MEDS ORDERED: Hydrocortisone Sod Succ/PF 100 mg/2 ml Vial ONE (12:56)
[2020-05-21] MEDS ORDERED: Famotidine/PF 20 mg/2ml Vial ONE (12:56)
[2020-05-21] MEDS ORDERED: diphenhydrAMINE 50 MG/ML VIAL ONE (12:56)
[2020-05-21] MEDS ORDERED: methylPREDNISolone Sod Succ/PF 125 MG/2 ML VIAL ONE (12:57)
--- NOTE | 2020-05-21 14:06 | CT ---
CT Abdomen Pelvis W Con History: Abdominal pain. Comparison: CT 2019 Findings: Lung bases are clear. No pericardial effusion. Mild periportal edema. Mild nodular appearance of the liver. There is an exophytic hypodensity, subcapsular, and hepatic segment 2 measuring 1 cm in size. There i s peripheral decreased parenchymal enhancement within hepatic segment 8. No hydronephrosis. Spleen and pancreas are unremarkable. Mild diverticular disease of the sigmoid colon without active current inflammation. The appendix is v isualized and is normal. Degenerative disc space changes lower lumbar spine. Impression: 1. Relative to CT examination nearly 2 years prior, the liver is smaller with peripheral fibrosis and progressive surface nodularity. 2. Peripheral hypodensity hepatic segment 8, subcapsular, measuring 1 cm in size is similar to compar ana CT examination without significant growth and not likely of clinical significance. 3. No acute inflammatory process within the abdomen or pelvis.
--- NOTE | 2020-05-21 14:12 | PDOC.HHP ---
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 The patient reports over the last 2 to 3 days feeling generally fatigued with associated white/monae stools. She remembered the last time she felt this way, it was her liver "acting up". Therefore, she called her housekeeper head office yesterday and explained her symptoms, which included generalized fatigue and white/monae stools. General labs were ordered by the GI office. This morning the patient awoke and noticed that she was "glowing in the dark" referring to her yellow skin. She also received a call from the housekeeper head office, instructing her to go to the ER because her liver enzymes and labs were abnormal. The only change to her medications is that she began taking milk thistle 1 week ago per recommendation by her housekeeper head. She denies any recent vaccinations or other medications. She denies any illicit drug usage in the past several years, no high risk sexual activity (she is ), denies fever, abdominal pain, nausea, vomiting , diarrhea. She does admit to some intermittent dysuria and dark urine. Of note, the patient reported that she was diagnosed with autoimmune hepatitis in 2018. At that time she had a complete work-up including CT scan, liver biopsy and "all the labwork you can think of ". Initially, she reports that the housekeeper head, Dr. Monae, thought it was attributed to her alcohol intake because at that time, she drank 8-9 beers per day. However, she reports that was subsequently ruled out. 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 She reports that she has had several tests for the hepatitis virus, which were all negative. She denies any illicit drug use since her diagnosis in 2018. She is and has no concern for sexual STIs. She reports that once the diagnosis was made in late 2017, she was placed on high dose oral steroids and an unknown immunomodulator. She reports that she had to stop the immunomodulator because it gave her a "severe reaction". She continued the steroid regimen from July 2018 through December 2018. She was receiving labs every 3 months. She reports her last lab work in February 2020 was unremarkable. She was in her usual state of health until 2-3 days ago. ED Course: Patient presented tachycardic, with normal blood pressure, normal respirations, normal O2 sat, afebrile. CT of the abdomen pelvis with contrast showed relative to CT examination nearly 2 years prior, the liver is smaller with peripheral fibrosis and progressive surface nodularity. Peripheral hypodensity hepatic segment 8, subcapsular, measuring 1 cm in size similar to comparison CT examination without significant growth or not likely clinical significance. No acute inflammatory process within the abdomen or the pelvis. Total bilirubin 10.3, direct bilirubin 7.4, AST 1344, ALT 1848, alk phos 329, PT 15.2, INR 1.2, APTT 35.5, WBCs 14.0. VITAL SIGNS TueMay 21, 2020 11:45 LIANET Claros Emily BP: 139/84, Pulse: 125, Resp: 17, Temp: 99.0 (Oral), Pain: 0, O2 sat: 96 on ( Room Air), Time: 05/21/2020 11:45 Medications administered: sodium chloride 0.9 % intravenous 1 L IV Fluid Infusion Given 13:32 05/21/2020 Pepcid (PF) 20 mg IV Push Given 13:15 05/21/2020 SOLU-Medrol injection 125 mg IV Push Given 13:15 05/21/2020 Benadryl injection 50 mg IV Push Given 13:15 05/21/2020 Hospitalist ROS - Review of Systems Constitutional: reports: weakness (Generalized), malaise. denies: fever, chills Cardiovascular: denies: chest pain, palpitations, edema, light headedness Gastrointestinal: reports: other (White/monae stools, last bowel movement this morning). denies: nausea, vomiting, abdominal pain, diarrhea, constipation Genitourinary: reports: dysuria. denies: frequency, incontinence, hematuria Neurological: denies: numbness, change in speech, confusion All other systems reviewed; all pertinent +/- noted in HPI/Subj - Medication Medications: Home Medications: NONE Allergies: iodine, penicillin G sodium, Sulfa (Sulfonamide Antibiotics), Sulfa Dyne Hospitalist History - Past Medical History Source: patient, RN notes reviewed Other Medical History: MEDICAL HISTORY TueMay 21, 2020 12:25 LIANET Maurer, Pearl Auto immune hepatitis, aguilar Lamin syndrome. FEMALE SURGICAL HISTORY TueMay 21, 2020 12:25 LIANET Maurer Melanie Patient has no surgical history. PSYCHIATRIC HISTORY TueMay 21, 2020 12:25 LIANET Maurer Melanie No previous psychiatric history, No previous psychiatric history. SOCIAL HISTORY TueMay 21, 2020 12:25 LIANET Maurer Melanie Patient denies alcohol use, Patient denies drug use, Patient currently uses tobacco, smokes cigarettes, daily, Patient smokes 2 packs per day. Former alcohol abuse (quit 2 years ago, drank 8-9 beers daily), former meth abuse. Lives with spouse at home, ambulates without assistive device. FAMILY HISTORY non contributory for auto immune disorders or liver disease. - Exam General Appearance: NAD, awake alert. negative: ill appearing General - other findings: Jaundiced face and chest Eye: scleral icterus ENT: normocephalic atraumatic, dry oral mucosa Neck: supple, symmetric Heart: no murmur, no gallops, no rubs, normal peripheral pulses Heart - other findings: tachycardia Respiratory: CTAB, no wheezes, no rales, no ronchi, normal chest expansion, no tachypnea Gastrointestinal: soft, non-tender, normal bowel sounds, no bruit, no guarding, no rigidity, distended (mildly) Extremities: no cyanosis, no edema Skin: negative: no rashes Skin - other findings: jaundice face and chest Neurological: cranial nerve grossly intact, normal sensation to touch, no weakness, no focal deficits Musculoskeletal: normal tone, normal strength Psychiatric: normal affect, A&O x 3 Hospitalist Results - Labs Result Diagrams: 05/21/20 12:05 05/21/20 12:05 Lab results: WBC 14.0 thou/uL (4.8-10.8) H 05/21/20 12:05 Hgb 16.1 g/dL (12.0-16.0) H 05/21/20 12:05 Hct 50.4 % (36.0-47.0) H 05/21/20 12:05 MCV 100.0 fL (78.0-98.0) H 05/21/20 12:05 Plt Count 261 thou/uL (130-400) 05/21/20 12:05 Neutrophils % 55.5 % (42.0-75.0) 05/21/20 12:05 Band Neuts % (Manual) 7 % (5-11) 05/21/20 12:05 Sodium 134 mmol/L (136-145) L 05/21/20 12:05 Potassium 4.0 mmol/L (3.5-5.1) 05/21/20 12:05 Chloride 105 mmol/L (98-107) 05/21/20 12:05 Carbon Dioxide 22 mmol/L (23-31) L 05/21/20 12:05 BUN 15 mg/dL (9.8-20.1) 05/21/20 12:05 Creatinine 0.83 mg/dL (0.6-1.1) 05/21/20 12:05 Glucose 129 mg/dL (80-115) H 05/21/20 12:05 Calcium 9.1 mg/dL (7.8-10.44) 05/21/20 12:05 Total Bilirubin 10.3 mg/dL (0.2-1.2) H 05/21/20 12:05 AST 1344 U/L (5-34) H 05/21/20 12:05 ALT 1848 U/L (8-55) H 05/21/20 12:05 Alkaline Phosphatase 329 U/L (40-110) H 05/21/20 12:05 Serum Total Protein 8.3 g/dL (6.0-8.3) 05/21/20 12:05 Albumin 3.8 g/dL (3.4-4.8) 05/21/20 12:05 Lipase 17 U/L (8-78) 05/21/20 12:05 - Radiology Interpretation CT scan - abdomen Status: report reviewed by [place] Hospitalist H&P A/P - Problem (1) Transaminitis Code(s): R74.0 - NONSPEC ELEV OF LEVELS OF TRANSAMNS & LACTIC ACID DEHYDRGNSE Status: Acute Assessment and Plan: Admit the patient to telemetry floor, inpatient status. Expected length of stay at least 2 midnights. Patient presented tachycardic, with normal blood pressure, normal respirations, normal SPO2, afebrile. CT abdomen negative for any acute inflammatory process in the abdomen. Total bilirubin 10.3, direct bilirubin 7.4, AST 1344, ALT 1844, ALP 329, lipase 17, PT 15.2, INR 1.2, WBCs 14. Upon examination, patient reported known history of autoimmune hepatitis with extensive work-up in 2018. She reports hepatitis was well-controlled on steroids from July 2018 through December 2018. Since that she was getting lab work every 3 months and followed up with Dr. Regalado. She reports that she is "still paying the bill for her previous hospital stay". She prefers minimal lab work as possible. Will continue high-dose IV steroids. Continue IV fluids. Consult GI. Will order right upper quadrant ultrasound to rule out obstruction. Repeat labs in a.m. Will allow oral intake today and make n.p.o. after midnight. (2) Tachycardia Code(s): R00.0 - TACHYCARDIA, UNSPECIFIED Status: Acute Assessment and Plan: Asymptomatic, no cardiac risk factors. Will get baseline 12 -lead EKG. (3) Dysuria Code(s): R30.0 - DYSURIA Status: Acute Assessment and Plan: Will check UA. Likely related to Problem #1. (4) Hepatitis, autoimmune Code(s): K75.4 - AUTOIMMUNE HEPATITIS Status: Chronic Assessment and Plan: Reports extensive work-up [place] [address] Monae. Reports successful treatment with high-dose oral steroids from July 2018 through December 2018. Reports failure on neuromodulator with unknown name due to severe allergic reaction. Has been getting lab work every [address] Regalado office. (5) Tobacco abuse Code(s): Z72.0 - TOBACCO USE Status: Chronic Assessment and Plan: Reports smoking just under 2 packs/day. Unwilling to quit. Trying to "cut back ". Will order an NRT therapy. Will application counselor on tobacco cessation. - Plan Plan: Consult PT. Lovenox for DVT prophylaxis. Protonix for GI prophylaxis. Full code. Discussed case with Dr. Zhu.
[2020-05-21] MEDS ORDERED: Iopamidol-370 76% 500 ML 1 ML ONE (14:14)
[2020-05-21] MEDS ORDERED: Calcium Carbonate 500 MG ChewTAB PO PRN (14:52)
[2020-05-21] MEDS ORDERED: Ondansetron PF 4 MG/2 ML Vial IVP PRN (14:52)
[2020-05-21] MEDS ORDERED: Ondansetron ODT 4 MG TAB PO PRN (14:52)
[2020-05-21] MEDS ORDERED: Senokot S 8.6-50 MG TAB PO PRN (14:52)
[2020-05-21] MEDS: Sodium Chloride 0.9% 1,000 ML IV SCH (20:03)
[2020-05-21] MEDS: methylPREDNISolone Sod Succ/PF 125 MG/2 ML VIAL IVP SCH ×2 (20:08→23:49)
[2020-05-21] MEDS ORDERED: Nicotine 14 MG PATCH TD SCH (21:00)
[2020-05-21 23:29] LABS: Bacteria/HPF None Seen HPF (None Seen); Bilirubin 2+ (Negative); Blood, Urine 1+ (Negative); Clarity Clear (Clear); Glucose, Urine (Dipstick) Normal (Negative); Ketone, Urine Negative (Negative); Leukocyte 500 Leu/uL (Negative); Mucous/LPF Rare LPF (<2+); Nitrite Negative (Negative); Protein, Urine (Dipstick) 10 mg/dL (Neg-Trace); Renal Epithelial 0-3 HPF (None Seen); Specific Gravity, Urine 1.033 (1.002-1.036); WBC/HPF 21-50 HPF (0-3)
[2020-05-22 04:23] LABS: Band 14 % (5-11); Hemoglobin 14.1 g/dL (12.0-16.0); Lymphocytes 17 % (21-51); MDiff Complete? YES; Mean Corpuscular Hemoglobin 32.3 pg (27.0-31.0); Mean Platelet Volume 9.9 fL (7.4-10.4); Monocytes 1 % (0-10); Neutrophil 68 % (42-75); Platelet Count 231 thou/uL (130-400); Platelet Morphology Comment Appears Adequate; RBC Distribution Width 13.7 % (11.5-14.5); Red Blood Cell (RBC) Count 4.37 mill/uL (4.20-5.40); White Blood Cell (WBC) Count 11.7 thou/uL (4.8-10.8)
[2020-05-22] MEDS: methylPREDNISolone Sod Succ/PF 125 MG/2 ML VIAL IVP SCH ×2 (04:29→13:03)
[2020-05-22 04:38] LABS: ALT (SGPT) 1337 U/L (8-55); AST (SGOT) 664 U/L (5-34); Albumin 3.1 g/dL (3.4-4.8); Alkaline Phosphatase 260 U/L (40-110); Anion Gap 8 mmol/L (10-20); BUN (Urea Nitrogen) 13 mg/dL (9.8-20.1); Bilirubin, Total 6.8 mg/dL (0.2-1.2); Calc. Creatinine Clearance 101 mL/min (70-130); Calcium 8.7 mg/dL (7.8-10.44); Carbon Dioxide 21 mmol/L (23-31); Chloride 110 mmol/L (98-107); Estimated GFR-MDRD 82; Globulin 3.8 g/dL (2.4-3.5); Glucose 176 mg/dL (80-115); Potassium 4.3 mmol/L (3.5-5.1); Protein, Total 6.9 g/dL (6.0-8.3); Sodium 135 mmol/L (136-145)
[2020-05-22] MEDS ORDERED: Pantoprazole 40 MG VIAL IVP SCH (09:00)
[2020-05-22] MEDS ORDERED: Enoxaparin Sodium 40 MG/0.4 ML SYRINGE SC SCH (09:00)
[2020-05-22] MEDS: Sodium Chloride 0.9% 1,000 ML IV SCH (13:03)
[2020-05-22 13:28] LABS: SARS-CoV-2 MS2 Positive; SARS-CoV-2 N Gene Negative; SARS-CoV-2 S Gene Negative; SARS-CoV-2 by NAA Not Detected (NotDetected); SARS-CoV-2 orf1ab Negative
[2020-05-22 14:09] VITALS: BMI 26.2
[2020-05-22] MEDS ORDERED: predniSONE 20 MG TAB PO SCH (17:15)
[2020-05-22 18:26] VITALS: BP 154/70; TEMP 97.7
[2020-05-22 19:16] LABS: HBCM Index 0.06 S/CO (0-0.79); HBSAB Concentration Less than 8.00 mIU/mL; HBSAg Index 0.14 S/CO (0-0.99); Hep A IgM AB Non-Reactive (NonReactive); Hep A IgM S/CO 0.14 S/CO (0-0.79); Hep B Surf AB Non-Reactive (NonReactive); Hep B Surf Ag Non-Reactive S/CO (NonReactive); Hep C IgG Ab Non-Reactive (NonReactive); Hep C Index 0.13 S/CO (0-0.79); Hepatitis B Core IgM Abs Non-Reactive (NonReactive)
--- NOTE | 2020-05-23 00:10 | CON ---
DATE OF CONSULTATION: 05/22/2020 CHIEF COMPLAINT: Fatigue and jaundice and abnormal liver tests. HISTORY OF PRESENT ILLNESS: Ms. Carbajal is a 60-year-old woman who was diagnosed with autoimmune hepatitis back in 2018. She was treated with prednisone for about 5-1/2 months and her liver tests returned normal and then remain normal for quite some time. She was given azathioprine which she took for about 2 weeks total, but without medication she developed rash and joint pain and her skin of her hands peeled off. She discontinued azathioprine, though symptoms resolved. She did well up until a couple of weeks ago. She again started feeling fatigued and became jaundiced. Her urine became dark. She had some pressure in the right mid back and she had a bowel movement a couple of days ago that was white. She had these symptoms previously when her liver flared up, so she knew this was a problem and called the office and had her liver tests checked, which revealed an ALT as high as 1800 and she was advised to go into the emergency room for further evaluation. Again, she was found to have significantly elevated liver tests. She had a CT scan of her abdomen and pelvis performed yesterday which showed progression of her liver disease. She now has a nodular appearance to the liver and the liver is smaller and shrunken. She was started on methylprednisolone and her followup liver tests improved markedly today. Today, she has no abdominal pain. No nausea or vomiting or diarrhea or constipation. She had a normal bowel movement today. She feels much better overall. PAST MEDICAL HISTORY: Autoimmune hepatitis. Biopsy back in 2018 showed no fibrosis. Imaging indicates now that she has progressed to cirrhosis. She has a history of Cabral-Lamin syndrome. PAST SURGICAL HISTORY: Liver biopsy. FAMILY HISTORY: Negative for GI malignancy or liver disease. SOCIAL HISTORY: She had been smoking 3 packs per day in the past and now is down to a pack and a half per day. She quit drinking alcohol a couple of years ago when she was diagnosed with autoimmune hepatitis. She has a past history of methamphetamine use, but nothing recent. ALLERGIES: PENICILLIN, SULFA, AZATHIOPRINE, IODINE. CURRENT INPATIENT MEDICATIONS: She has been on methylprednisolone and enoxaparin. REVIEW OF SYSTEMS: Negative x10 systems reviewed except as stated in the history of present illness. PHYSICAL EXAMINATION: VITAL SIGNS: Temperature 98.1, pulse 88, blood pressure 109/59. GENERAL: She is jaundiced, in no acute distress. Alert and oriented x3. HEENT: Eyes have scleral icterus. Oropharynx is clear without lesions. No cervical or supraclavicular lymphadenopathy. NEUROLOGIC: She has no asterixis. LUNGS: Clear to auscultation bilaterally. HEART: Regular rate and rhythm without murmur. ABDOMEN: Soft, nontender, and nondistended. Bowel sounds are present. EXTREMITIES: No lower extremity edema. LABORATORY DATA: Bilirubin is 6.8, down from 10.3 yesterday. AST 664, down from 1344 yesterday. ALT is 1337 today, down from 1848 today yesterday. Alkaline phosphatase is 260 today, down from 329 yesterday. Albumin is 3.1, lipase 17, creatinine 0.72. INR 1.2. White blood cell count 11.7, hemoglobin is 14.1, platelets 231. IMPRESSION: 1. Autoimmune hepatitis. Previously, her smooth muscle antibody was negative, but her biopsy did show acute hepatitis with plasma cells. She responded very well to immune suppression previously, but she was only on this for about 5 months. She now presents with a flare of her autoimmune hepatitis. Her globulin was elevated at 4.5 yesterday and after steroids today is down to 3.8. 2. Cirrhosis of the liver. She had no fibrosis on her previous biopsy from 2018. Now, CT scan shows nodular cirrhotic liver. She will require hepatoma screening and esophageal varices screening. RECOMMENDATIONS: 1. She is insistent that she be discharged today because she is feeling so much better. 2. We will give prednisone 60 mg now and then discharge her on 40 mg daily. She will need to follow up in the office within 1 to 2 weeks to have her labs rechecked and have her prednisone dose adjusted as indicated. 3. She had upper endoscopy to evaluate for varices as an outpatient. 4. I have ordered an alpha fetoprotein. She can also receive additional liver specific imaging which can be done as an outpatient. 5. In light of the acute flare, then I have reordered an acute viral hepatitis panel. 6. We will check hepatitis A total antibody and hepatitis B surface antibody and if these are negative, she should be vaccinated. 7. Again, she is insistent on being discharged today, but states she will call to schedule followup in the office within the next week to 2 weeks. Job ID: [id number]
[2020-05-23] MEDS ORDERED: predniSONE 20 MG TAB PO SCH (08:00)
--- NOTE | 2020-05-23 08:14 | DIS ---
DATE OF ADMISSION: 05/21/2020 DATE OF DISCHARGE: 05/22/2020 DISCHARGE DIAGNOSES: 1. Autoimmune hepatitis, recurrent. 2. Sinus tachycardia. 3. Tobacco abuse. 4. Hyperbilirubinemia secondary to autoimmune hepatitis. CONSULTATION: Dr. Toney with GI Service. PERTINENT LABORATORY AND X-RAY FINDINGS: Sodium ranged between 134 and 135. Total bilirubin ranged between 6.8 to 10.3, direct bilirubin 7.4, AST ranged between 664 to 1344, ALT ranged between 1337 to 1848, and alkaline phosphatase ranged between 260 to 329. Lipase 17. Albumin ranged between 3.1 to 3.8. CBC showed white blood cell count ranging between 14.0 to 11.7, hemoglobin ranged between 14.1 to 16.1, and MCV 101. PT 15.2, INR 1.2, and PTT 36. COVID-19 PCR not detected on 05/21/2020. CT of the abdomen and pelvis dated 05/21/2020, showed decreased size of the liver with peripheral fibrosis and progressive surface nodularity compared to previous exam in 2018. No acute inflammatory process in the abdomen or pelvis. HOSPITAL COURSE: The patient was admitted after initially presenting with painless jaundice and transaminitis in the context of known history of autoimmune hepatitis. CT of the abdomen and pelvis showed peripheral fibrosis and nodularity of the liver, confirming the patient's diagnosis. The patient was noted with LFTs in the greater than 1000 range and initiated on IV Solu-Medrol 60 mg q.6 hours. The patient's overall AST decreased approximately 700 points and ALT decreased approximately 400 points. The patient was evaluated by the GI Service with recommendations to continue outpatient prednisone therapy and to follow up for serial LFT monitoring. The patient remained clinically stable during the hospital course and ready for discharge on 05/22/2020. I have examined the patient at the time of discharge and discussed followup instructions. The patient verbalized understanding and in agreement and ready for discharge on 05/22/2020. DISCHARGE MEDICATIONS: Prednisone 10 mg, take four tabs p.o. daily x2 weeks. FOLLOW UP: The patient may follow up with Dr. [place] Toney with GI Service and to call his office for appointment, time, and date. CONDITION ON DISCHARGE: Stable. ACTIVITY: Ad-marjorie. DIET: Regular. CODE STATUS: Full. DISPOSITION: Home on 05/22/2020. TIME SPENT: Total time preparing and coordinating discharge, 32 minutes. Job ID: [id number]
== END 2020-05-22 18:27 | disposition home or self-care (01) | DRG 443 ==
LOC: ERS 11:44 → ERHOLD 14:55 → 2NO 18:21
PROVIDERS: ADMIT Family Medicine; ATTEND Family Medicine
DX: K75.4 Autoimmune hepatitis (principal); Z20.828 Contact with and (suspected) exposure to other viral communicable diseases; F10.11 Alcohol abuse, in remission; R00.0 Tachycardia, unspecified; K74.60 Unspecified cirrhosis of liver; K74.0 Hepatic fibrosis; F17.210 Nicotine dependence, cigarettes, uncomplicated; Z88.0 Allergy status to penicillin; Z88.2 Allergy status to sulfonamides; Z91.041 Radiographic dye allergy status; Z88.8 Allergy status to other drugs, medicaments and biological substances
CPT/HCPCS: 36415; 74177; 80053; 80074; 81001; 82105; 82248; 83690; 85007; 85025; 85027; 85610; 85730; 86706; 86708; 87635; C9113; J1200; J1720; J2930; J7512; Q9967; S0028; U0003

== ENCOUNTER 2021-07-02 07:15 | Outpatient (CLI) | payer OTHER | END 2021-07-02 07:16 | disposition home or self-care (01) | LOC: BICULT 07:15 | PROVIDERS: ATTEND Internal Medicine | DX: K75.4 Autoimmune hepatitis (principal); K74.60 Unspecified cirrhosis of liver | CPT/HCPCS: 76705 ==

== ENCOUNTER 2022-03-12 07:45 | Outpatient (CLI) | payer SELFPAY | END 2022-03-12 07:46 | disposition home or self-care (01) | LOC: ULT 07:45 | PROVIDERS: ATTEND Internal Medicine | DX: Z12.11 Encounter for screening for malignant neoplasm of colon (principal); K75.4 Autoimmune hepatitis; K74.60 Unspecified cirrhosis of liver | CPT/HCPCS: 76705 ==

== ENCOUNTER 2022-10-15 07:32 | Outpatient (CLI) | payer OTHER | END 2022-10-15 07:33 | disposition home or self-care (01) | LOC: ULT 07:32 | PROVIDERS: ATTEND Internal Medicine | DX: Z12.11 Encounter for screening for malignant neoplasm of colon (principal); K75.4 Autoimmune hepatitis; K74.60 Unspecified cirrhosis of liver | CPT/HCPCS: 76705 ==

== ENCOUNTER 2024-08-02 07:44 | Outpatient (CLI) | payer MEDICARE | END 2024-08-02 07:45 | disposition home or self-care (01) | LOC: BICMAMMO 07:44 | DX: Z12.31 Encounter for screening mammogram for malignant neoplasm of breast (principal); R07.89 Other chest pain | CPT/HCPCS: 71120; 77063; 77067 ==

== ENCOUNTER 2024-09-14 07:44 | Outpatient (CLI) | payer MEDICARE | END 2024-09-14 07:45 | disposition home or self-care (01) | LOC: ULT 07:44 | PROVIDERS: ATTEND Internal Medicine | DX: K74.60 Unspecified cirrhosis of liver (principal); K75.4 Autoimmune hepatitis | CPT/HCPCS: 76705 ==